=== PATIENT | female | born 1970 | race Caucasian/White ===

== ENCOUNTER → 2017-04-10 | Outpatient (CLI) | payer BC ==
--- NOTE | 2017-04-10 20:15 | US ---
PROCEDURE: Venous,Lower Extremity LT CLINICAL HISTORY and INDICATION: Left lower extremity edema COMPARISON: None. TECHNIQUE: Carroll scale imaging with duplex interrogation of the left lower extremity venous system was performed and multiple static images were obtained. FINDINGS: Utilizing compression and augmentation, there is no deep venous thrombus in the common femoral, superficial femoral or popliteal veins. The posterior tibial and deep peroneal veins are patent and compressible. . The greater saphenous vein at the saphenofemoral junction is patent and compressible. There is no visualization of any subcutaneous fluid collections. There is no visualization of any fluid collections in the left popliteal fossa. There is no evidence of reactive or pathological lymphadenopathy in the evaluated left lower extremity. IMPRESSION: No deep venous thrombosis of the left lower extremity. Location of Interpretation: [id number] Electronically signed by: Stevenson Richter MD 04/10/2017 8:14 PM CDT Workstation: [id number]
--- NOTE | 2017-04-10 20:16 | US ---
PROCEDURE: Venous,Lower Extremity RT CLINICAL HISTORY and INDICATION: Right lower extremity edema COMPARISON: None. TECHNIQUE: Carroll scale imaging with duplex interrogation of the right lower extremity venous system was performed and multiple static images were obtained. FINDINGS: Utilizing compression and augmentation, there is no deep venous thrombus in the common femoral, superficial femoral or popliteal veins. The posterior tibial and deep peroneal veins are patent and compressible. . The greater saphenous vein at the saphenofemoral junction is patent and compressible. There is no visualization of any subcutaneous fluid collections. There is no visualization of any fluid collections in the right popliteal fossa. There is no evidence of reactive or pathological lymphadenopathy in the evaluated right lower extremity. IMPRESSION: No deep venous thrombosis of the right lower extremity. Location of Interpretation: [id number] Electronically signed by: Stevenson Richter MD 04/10/2017 8:15 PM CDT Workstation: [id number]
--- NOTE | 2017-04-11 08:59 | US ---
Arterial Doppler sonogram bilateral lower extremities CLINICAL HISTORY: Edema and lower extremity pain FINDINGS: Color Doppler sonogram of the bilateral lower extremities demonstrates normal arterial waveforms and flow velocities. No focal abnormality. No stenosis IMPRESSION: Normal bilateral lower extremity arterial Doppler sonogram Electronically signed by: Alphonso Rider MD 04/11/2017 8:58 AM CDT
== END | disposition home or self-care (01) ==
LOC: US 09:23
PROVIDERS: ATTEND Family Medicine
DX: I70.229 Atherosclerosis of native arteries of extremities with rest pain, unspecified extremity (principal)

== ENCOUNTER → 2017-04-16 | Outpatient (CLI) | payer BC ==
--- NOTE | 2017-04-16 14:29 | RAD ---
EXAM DESCRIPTION: Foot,Right 2 Views CLINICAL HISTORY: BI LATERAL FOOT PAIN COMPARISON: None. TECHNIQUE: 2 views right FINDINGS: I see no bone joint or soft tissue abnormality. IMPRESSION: Normal right foot. Electronically signed by: Kory White MD 04/16/2017 2:28 PM CDT
--- NOTE | 2017-04-16 14:30 | RAD ---
EXAM DESCRIPTION: Foot,Left 2 Views CLINICAL HISTORY: BI LATERAL FOOT PAIN COMPARISON: None. TECHNIQUE: 3 views left FINDINGS: I see no bone joint or soft tissue abnormality. IMPRESSION: Normal left foot. Electronically signed by: Kory White MD 04/16/2017 2:29 PM CDT
== END | disposition home or self-care (01) ==
LOC: RAD 10:21
PROVIDERS: ATTEND Family Medicine
DX: M79.672 Pain in left foot (principal); M79.671 Pain in right foot

== ENCOUNTER → 2017-12-25 | Outpatient (CLI) | payer BC ==
--- NOTE | 2017-12-26 12:43 | RAD ---
EXAM DESCRIPTION: Hand,Right 3 Views CLINICAL HISTORY: PAIN IN RIGHT HAND COMPARISON: None Available. TECHNIQUE: AP, LATERAL, AND OBLIQUE FINDINGS: Three-view right hand shows no fracture or dislocation. There is no bone lesion. Degenerative narrowing of the DIP joints is noted. Slight deformity of the fifth metacarpal could be old healed fracture. Small periarticular lucencies are noted. There is no radiopaque foreign body. IMPRESSION: Degenerative changes as described. Electronically signed by: Doc Gilliam MD 12/26/2017 12:42 PM CDT
--- NOTE | 2017-12-26 12:46 | RAD ---
EXAM DESCRIPTION: Hand,Left 3 Views CLINICAL HISTORY: PAIN IN LEFT HAND COMPARISON: None Available. TECHNIQUE: AP, LATERAL, AND OBLIQUE FINDINGS: Three-view left hand shows no fracture or dislocation. There is no bone lesion. Degenerative narrowing of the DIP joints is seen. There is no radiopaque foreign body. IMPRESSION: Degenerative narrowing of the DIP joints of the fingers. Electronically signed by: Doc Gilliam MD 12/26/2017 12:45 PM CDT
== END ==
LOC: RAD 08:59
PROVIDERS: ATTEND Orthopaedic Surgery
DX: M79.641 Pain in right hand (principal); M79.642 Pain in left hand

== ENCOUNTER 2018-01-10 19:54 | Emergency (ER) | payer BC ==
[2018-01-10 20:07] VITALS: BP 113/71; TEMP 98.6; O2SAT 94
--- NOTE | 2018-01-10 20:38 | RAD ---
EXAM DESCRIPTION: Foot,Left 3 Views CLINICAL HISTORY: 47 years ,Female heard a popping noise COMPARISON: None. TECHNIQUE: LEFT foot, Three view FINDINGS: No acute fractures or dislocations are identified. No osseous destructive lesions. No radiopaque foreign object noted. No significant ankle effusion noted. IMPRESSION: No acute fracture or dislocation is identified. Electronically signed by: Jacqueline Vincent MD 01/10/2018 8:36 PM CDT
--- NOTE | 2018-01-10 20:45 | ED.PDOC ---
History of Present Illness - General Chief Complaint: Lower Extremity Injury Stated Complaint: Left foot injury Time Seen by Provider: 01/10/18 20:03 Source: patient Exam Limitations: no limitations - History of Present Illness Initial Comments: the patient is a 47-year-old female presenting to the emergency room secondary to a popping sensation in the front medial aspect of her left foot when she tried to keep herself from falling after she had tripped while standing. Pain is around the distal aspect of the first metatarsal. There is no deformity or bruising. She is neurovascularly intact. No ankle pain. She has been ambulatory on it since. Timing/Duration: 4-6 hours Severity: moderate Improving Factors: nothing Worsening Factors: movement Associated Symptoms: denies symptoms Allergies/Adverse Reactions: Allergies Aspirin Allergy (Verified 01/10/18 20:07) Other Causes itching Penicillins Allergy (Verified 01/10/18 20:07) Rash Home Medications: Ambulatory Orders Escitalopram [Lexapro] 10 mg PO DAILY 01/10/18 Estradiol [Estrace] 1 mg PO DAILY 01/10/18 Review of Systems - Review of Systems Constitutional: States: no symptoms reported EENTM: States: no symptoms reported Respiratory: States: no symptoms reported Cardiology: States: no symptoms reported Gastrointestinal/Abdominal: States: no symptoms reported Genitourinary: States: no symptoms reported Musculoskeletal: States: see HPI Skin: States: no symptoms reported Neurological: States: no symptoms reported Endocrine: States: no symptoms reported All other Systems: No Change from Baseline Past Medical History (General) - Patient Medical History Hx Stroke: No Hx Congestive Heart Failure: No Hx Diabetes: No Hx Cancer: Yes - Basal cell CA (face) 2013 Surgical History: Hysterectomy - Vaccination History Hx Influenza Vaccination: No Hx Pneumococcal Vaccination: Yes - 2016 - Social History Hx Tobacco Use: Yes Family Medical History - Family History Mother Living Status: Hx Family Hypertension: Yes Hx Family Cancer: Yes - Lung, Brain Physical Exam - Physical Exam General Appearance: Alert, Comfortable, No apparent distress Eye Exam: bilateral normal Ears, Nose, Throat: hearing grossly normal Neck: full range of motion Respiratory: no respiratory distress, no accessory muscle use Cardiovascular/Chest: normal peripheral pulses, no edema Rectal Exam: deferred Extremity: normal range of motion, no pedal edema, no calf tenderness, normal capillary refill, other - ain over the first metatarsal of the left foot. No deformity. No crepitus. Neurologic: rn transplant II-XII nml as tested, no motor/sensory deficits, alert, normal mood/affect, oriented x 3 Skin Exam: normal color Comments: Vital Signs - 24 hr 01/10/18 20:03 Temperature 98.6 F Pulse Rate [ 81 Left Radial] Respiratory 20 Rate Blood Pressure 113/71 [Left Arm] O2 Sat by Pulse 94 L Oximetry Progress - Progress Progress: 01/10/18 20:44 the patient is a 47-year-old female presenting to emergency room secondary to left distal medial foot pain starting earlier today related to mild trauma. X-ray of the foot showed no evidence of fracture or dislocation. This is most likely a sprain. She needs to try and use a hard sole shoe to get around in for the next week or 2 to aid in healing. [id number] anti- inflammatories can be used for discomfort. ER warnings were given. Departure - Departure Clinical Impression: Sprain of left ankle or foot Disposition: Discharge to Home or Self Care Condition: Fair Departure Forms: ED Discharge - Pt. Copy, Patient Portal Self Enrollment Instructions: DI for Foot Sprain Diet: regular diet Activity: no exercise Referrals: Isaiah Shaikh MD [Primary Care Provider] - 1-2 Weeks Home Medications: Ambulatory Orders Escitalopram [Lexapro] 10 mg PO DAILY 01/10/18 Estradiol [Estrace] 1 mg PO DAILY 01/10/18 Additional Instructions: the patient is a 47-year-old female presenting to emergency room secondary to left distal medial foot pain starting earlier today related to mild trauma. X-ray of the foot showed no evidence of fracture or dislocation. This is most likely a sprain. She needs to try and use a hard sole shoe to get around in for the next week or 2 to aid in healing. [id number] anti- inflammatories can be used for discomfort. ER warnings were given.
== END 2018-01-10 20:50 | disposition home or self-care (01) ==
LOC: ER 19:54
DX: S93.402A Sprain of unspecified ligament of left ankle, initial encounter (principal); Z85.828 Personal history of other malignant neoplasm of skin; W18.49XA Other slipping, tripping and stumbling without falling, initial encounter; Y92.9 Unspecified place or not applicable

== ENCOUNTER → 2018-02-24 | Outpatient (CLI) | payer BC ==
--- NOTE | 2018-02-24 16:53 | US ---
EXAM DESCRIPTION: Soft Tissue,Abdomen: ULTRASOUND. CLINICAL HISTORY: MID BACK MASS COMPARISON: None Available. TECHNIQUE: Transcutaneous scanning: Carroll-scale and Doppler modes. FINDINGS: Homogeneous 6.4 x 5.9 x 1.3 cm mass in the sagittal mid upper back corresponding to palpable mass. Similar echogenicity to the surrounding subcutaneous adipose tissue. No abnormal vascularity. Smooth margins. No posterior acoustic shadowing. Parallel orientation. No adjacent distinct solid masses or cysts. No parenchymal edema or large calcifications. No overlying skin changes. 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 Electronically signed by: Luis Miguel Fuchs MD 02/24/2018 4:51 PM CDT
== END ==
LOC: RAD 13:14
PROVIDERS: ATTEND Surgery
DX: R22.2 Localized swelling, mass and lump, trunk (principal); D17.9 Benign lipomatous neoplasm, unspecified